=== PATIENT | male | born 2000 | race Caucasian/White ===

== ENCOUNTER 2022-12-26 16:28 | Emergency (ER) | payer OTHER, SELFPAY ==
[2022-12-26 16:39] VITALS: BP 130/83; PULSE 65; RESP 16; TEMP 36.5; O2SAT 99
--- NOTE | 2022-12-26 17:00 | ED.URI ---
HPI - URI/Sore Throat General Chief Complaint: Upper Respiratory Infection Stated Complaint: Congestion Time Seen by Provider: 12/26/22 16:50 Source: patient Mode of arrival: ambulatory Limitations: no limitations History of Present Illness HPI Narrative: Patient presents today complaining of a 5 day history of sinus pressure, cough, congestion, wheezing. States his sinus symptoms have improved, but his cough and wheezing have persisted. He denies shortness of breath, sore throat, fever. He has been taking Benadryl without relief. History of asthma. States he did have an albuterol rescue inhaler several years ago, but has lost it. Related Data Allergies Allergy/AdvReac Type Severity Reaction Status Date / Time Penicillins AdvReac Unknown Unknown Verified 12/26/22 16:45 Review of Systems Review of Systems: CONSTITUTIONAL: Denies body aches, fever, chills, or sweats. EYES: Denies visual changes, redness, or discharge. ENT: Denies rhinorrhea, sore throat, or otalgia.+ sinus pressure, congestion CARDIOVASCULAR: Denies chest pain, palpitations, or edema. RESPIRATORY: Denies dyspnea.+ cough, wheezing GASTROINTESTINAL: Denies abdominal pain, nausea, vomiting, or diarrhea. GENITOURINARY: Denies dysuria or hematuria. SKIN: Denies rash, itching, or wounds. MUSCULOSKELETAL: Denies back pain, joint pain, or myalgia. NEUROLOGIC: Denies headache, numbness, tingling, or weakness. PSYCH: Denies depression or anxiety. [facility] Past Medical History Medical History (Updated 12/26/22 @ 17:04 by Stefania Stern, [facility], ) Asthma Comments At time of signature, I have reviewed and agree with nursing past medical, surgical, social and family history unless otherwise noted. Please see nursing chart for further information. There is no relevant family history pertinent to the presenting complaint Exam Narrative: GENERAL: Well-appearing, well-nourished, and in no acute distress. HEAD: Normocephalic, atraumatic. EYES: EOMI. No redness or drainage. Conjunctivae normal. ENT: Mucous membranes pink and moist. Nares clear. No rhinorrhea. TMs normal bilaterally. Throat normal. Uvula midline. NECK: Normal AROM. Supple. No lymphadenopathy. CHEST: No respiratory distress. Clear to auscultation. HEART: Regular rate and rhythm. No murmur appreciated. EXTREMITIES: Normal range of motion. No edema. SKIN: Warm, dry, no rash. Capillary refill normal. Normal skin turgor. NEURO: No focal deficits. Alert and oriented x3. Gait steady. PSYCH: Normal affect. No signs of depression or anxiety. Course Course Level of Care: Express Care Visit Vital Signs Vital signs: Vital Signs Temperature 97.7 F 12/26/22 16:39 Pulse Rate 65 12/26/22 16:39 Respiratory Rate 16 12/26/22 16:39 Blood Pressure 130/83 12/26/22 16:39 Pulse Oximetry 99 12/26/22 16:39 Oxygen Delivery Room Air 12/26/22 16:39 Temperature 97.7 F 12/26/22 16:39 Pulse Rate 65 12/26/22 16:39 Respiratory Rate 16 12/26/22 16:39 Blood Pressure 130/83 12/26/22 16:39 Pulse Oximetry 99 12/26/22 16:39 Oxygen Delivery Room Air 12/26/22 16:39 Reviewed. Pt has been instructed to follow up with his PCP regarding his elevated blood pressure today. MDM - URI/Sore Throat MDM Narrative Medical decision making narrative: Symptoms consistent URI and bronchitis. Upper respiratory symptoms seem to be improving. Will send in prescriptions for prednisone and an albuterol rescue inhaler. Anticipatory guidance given. Differential Diagnosis Differential diagnosis: Likely upper respiratory infection, sinusitis, viral infection and bronchitis Critical Care Time Critical Care Time Critical Care Time: No Discharge Plan Discharge Clinical Impression: Bronchitis Upper respiratory infection Qualifiers: URI type: unspecified URI Qualified Code(s): J06.9 - Acute upper respiratory infection, unspecified Patient Disposition: Home, Self-Care Condition: Stab
== END 2022-12-26 17:05 | disposition home or self-care (01) ==
PROVIDERS: Emergency Provider Nurse Practitioner
DX: J40 Bronchitis, not specified as acute or chronic (principal); J06.9 Acute upper respiratory infection, unspecified
CPT/HCPCS: 99203; G0463

== ENCOUNTER 2023-06-17 15:28 | Emergency (ER) | payer OTHER, SELFPAY ==
[2023-06-17 15:34] VITALS: BP 136/71; PULSE 67; RESP 16; TEMP 36.4; O2SAT 99
--- NOTE | 2023-06-17 15:57 | ED.SKABFB ---
HPI - Skin/Abscess/Foreign Bdy General Chief complaint: Skin/Abscess/Foreign Body Stated complaint: Rash,Insect Bites Time Seen by Provider: 06/17/23 15:29 Source: patient Mode of arrival: ambulatory Limitations: no limitations History of Present Illness HPI narrative: 22-year-old male presents to [facility] with complaints of erythematous itchy rash to his chest, back, upper legs, left arm and genitals since yesterday. Patient reports that [place] yesterday [place] stands and then started with a rash yesterday evening. Patient reports he has a long history of poison jimmy and reports that oral steroids alone do not work for him. Patient denies shortness of breath, wheezing, trouble swallowing, difficulty breathing or sore throat. Patient has not tried applying any [id number]-[id number] medications for symptoms MD complaint: rash Onset (ago): day(s) (1) Location: chest, back and genitals Quality: pruritic Relieving factors: none Exacerbating factors: none Associated symptoms: denies other symptoms Treatments prior to arrival: none Related Data Allergies Allergy/AdvReac Type Severity Reaction Status Date / Time Penicillins AdvReac Unknown Unknown Verified 06/17/23 15:35 Review of Systems Constitutional: Constitutional: Denies chills, Denies fatigue, Denies fever(s) and Denies weakness ENT: Denies vertigo, Denies dizziness, Denies epistaxis and Denies nasal congestion Cardiovascular: Cardiovascular: Denies chest pain Respiratory: Respiratory: Denies cough, Denies dyspnea and Denies wheezing Gastrointestinal: Gastrointestinal: Denies diarrhea, Denies nausea and Denies vomiting Integumentary/Breasts: Skin/Breast: Reports pruritus, Reports erythema, Reports rash and Denies skin ulcer Neurologic: Denies vertigo, Denies dizziness, Denies syncope and Denies headache(s) [facility] Past Medical History Medical History Asthma Comments At time of signature, I agree with nursing past medical, surgical, social and family history. There is no relevant family history pertinent to the presenting complaint. Exam Const: General: healthy appearing Nutritional Appearance: well nourished Orientation/consciousness: patient oriented x3 Limitations: no limitations HENMT: Head: normal to inspection Neck: Neck: normal visual inspection Resp: Effort & Inspection: normal respiratory effort and not labored Auscultation: clear to auscultation bilaterally, no crackles, no rales, no rhonchi, no wheezes and breath sounds present Cardio: Rate: regular rate Rhythm: regular rhythm Heart sounds: no murmurs Skin: General skin exam: normal color Wounds: no wounds Other: Intermittent raised erythematous rash noted to torso and back representing insect bite type of rash, possibly chigger-type rash. There is an area of erythematous raised linear rash to left forearm representing poison jimmy. No purulent drainage, bleeding, bruising or streaking erythema noted Neuro: General: patient oriented x3 Speech: normal speech Gait exam (Neuro): Normal gait present Psych: Affect: normal affect Attitude: cooperative Course Course Level of Care: Express Care Visit Vital Signs Vital signs: Vital Signs Temperature 36.4 C L 06/17/23 15:34 Pulse Rate 67 06/17/23 15:34 Respiratory Rate 16 06/17/23 15:34 Blood Pressure 136/71 06/17/23 15:34 Pulse Oximetry 99 06/17/23 15:34 Oxygen Delivery Room Air 06/17/23 15:34 Temperature 36.4 C L 06/17/23 15:34 Pulse Rate 67 06/17/23 15:34 Respiratory Rate 16 06/17/23 15:34 Blood Pressure 136/71 06/17/23 15:34 Pulse Oximetry 99 06/17/23 15:34 Oxygen Delivery Room Air 06/17/23 15:34 MDM - Skin/Abscess/Foreign Bdy MDM Narrative Medical decision making narrative: Encouraged patient to start oral prednisone tomorrow; educated patient to use steroid cream as prescribed but
[2023-06-17] MEDS: methylPREDNISolone SOD SUCC 125 MG VIAL IM (16:06)
== END 2023-06-17 16:16 | disposition home or self-care (01) ==
PROVIDERS: Emergency Provider Nurse Practitioner Family
DX: L23.7 Allergic contact dermatitis due to plants, except food (principal); S30.861A Insect bite (nonvenomous) of abdominal wall, initial encounter; W57.XXXA Bitten or stung by nonvenomous insect and other nonvenomous arthropods, initial encounter; J45.909 Unspecified asthma, uncomplicated
CPT/HCPCS: 96372; 99213; G0463; J2930

== ENCOUNTER 2023-06-20 15:15 | Emergency (ER) | payer OTHER, SELFPAY ==
[2023-06-20 15:29] VITALS: BP 137/90; PULSE 64; RESP 18; TEMP 36.9; O2SAT 98
[2023-06-20 15:30] VITALS: BP 137/90; PULSE 64; RESP 18; TEMP 36.9; O2SAT 98
--- NOTE | 2023-06-20 15:42 | ED.SKABFB ---
HPI - Skin/Abscess/Foreign Bdy General Chief complaint: Skin/Abscess/Foreign Body Stated complaint: poss insect bite Time Seen by Provider: 06/20/23 15:34 Source: patient, RN notes reviewed and old records reviewed Mode of arrival: ambulatory History of Present Illness HPI narrative: Patient presents today complaining of a possible infection to his left wrist. He was seen 3 days ago at Urgent Care and diagnosed with insect bites and poison jimmy. He was started on some oral prednisone and triamcinolone cream which he has been applying. He has also been scratching profusely at the wrist as it itches. Reports that his poison jimmy rash to the left forearm has spread to the inner elbow and biceps. Also reports the groin rash has spread down his legs to the bilateral popliteal fossa. He has been taking Benadryl and Pepcid for itching. States he believes he may have a spider bite to the wrist as there is a scabbed area here. Denies pain. Related Data Allergies Allergy/AdvReac Type Severity Reaction Status Date / Time Penicillins AdvReac Unknown Unknown Verified 06/20/23 15:29 Review of Systems Review of Systems: CONSTITUTIONAL: Denies body aches, fever, chills, or sweats. EYES: Denies visual changes, redness, or discharge. ENT: Denies rhinorrhea, congestion, sore throat, or otalgia. CARDIOVASCULAR: Denies chest pain, palpitations, or edema. RESPIRATORY: Denies cough or dyspnea. GASTROINTESTINAL: Denies abdominal pain, nausea, vomiting, or diarrhea. GENITOURINARY: Denies dysuria or hematuria. SKIN: + rash, possible insect bite. MUSCULOSKELETAL: Denies back pain, joint pain, or myalgia. NEUROLOGIC: Denies headache, numbness, tingling, or weakness. PSYCH: Denies depression or anxiety. [facility] Past Medical History Medical History Asthma Comments At time of signature, I have reviewed and agree with nursing past medical, surgical, social and family history unless otherwise noted. Please see nursing chart for further information. There is no relevant family history pertinent to the presenting complaint Exam Narrative: GENERAL: Well-appearing, well-nourished, and in no acute distress. HEAD: Normocephalic, atraumatic. EYES: EOMI. No redness or drainage. Conjunctivae normal. ENT: Mucous membranes pink and moist. NECK: Normal AROM. CHEST: No respiratory distress. EXTREMITIES: Normal range of motion. No edema. SKIN: Warm, dry. Capillary refill normal. Normal skin turgor. Erythematous tiny maculopapular rash that has coalesced to a moderately sized area of erythema to the anterior left wrist with slight induration and approximately 0.5 cm superficial scabbed area to the distal ulna area. No tenderness. Patient also has approximately 2 cm superficial linear abrasion to the anterior forearm. No red streaking noted. Patches of tiny maculopapular rash to the bilateral popliteal fossa and bilateral antecubital fossa. NEURO: No focal deficits. Alert and oriented x3. Gait steady. PSYCH: Normal affect. No signs of depression or anxiety. Course Course Level of Care: Express Care Visit Vital Signs Vital signs: Vital Signs Temperature 98.4 F 06/20/23 15:29 Pulse Rate 64 06/20/23 15:29 Respiratory Rate 18 06/20/23 15:29 Blood Pressure 137/90 06/20/23 15:29 Pulse Oximetry 98 06/20/23 15:29 Oxygen Delivery Room Air 06/20/23 15:29 Temperature 98.4 F 06/20/23 15:30 Pulse Rate 64 06/20/23 15:30 Respiratory Rate 18 06/20/23 15:30 Blood Pressure 137/90 06/20/23 15:30 Pulse Oximetry 98 06/20/23 15:30 Oxygen Delivery Room Air 06/20/23 15:30 Reviewed. Pt has been instructed to follow up with his PCP regarding his elevated blood pressure today. MDM - Skin/Abscess/Foreign Bdy MDM Narrative Medical decision making narrative: Patient has obvious contact dermatitis with possible small area of cellulitis of the distal wrist. W
== END 2023-06-20 15:48 | disposition home or self-care (01) ==
PROVIDERS: Emergency Provider Nurse Practitioner
DX: L03.114 Cellulitis of left upper limb (principal); L25.9 Unspecified contact dermatitis, unspecified cause; J45.909 Unspecified asthma, uncomplicated
CPT/HCPCS: 99213; G0463

== ENCOUNTER 2023-09-04 00:06 | Emergency (ER) | payer OTHER, SELFPAY ==
[2023-09-04 00:10] VITALS: BP 146/78; PULSE 107; RESP 18; TEMP 36.8; O2SAT 98
--- NOTE | 2023-09-04 01:10 | PC.NURSE ---
pt. to motel front desk attendant stating I am going home. PT. advised to return to facility for worsening conditions, Pt. NAD upon departure.
== END 2023-09-04 02:45 | disposition left against medical advice (07) ==
DX: L50.9 Urticaria, unspecified (principal)
CPT/HCPCS: 99199

== ENCOUNTER 2024-02-10 10:22 | Emergency (ER) | payer OTHER, SELFPAY ==
[2024-02-10 10:26] VITALS: BP 152/82; PULSE 71; RESP 16; TEMP 36.8; O2SAT 100
--- NOTE | 2024-02-10 10:30 | ED.GENADULT ---
HPI - General Adult General Chief complaint: Skin/Abscess/Foreign Body Stated complaint: Poison Rowena Source: patient, RN notes reviewed and old records reviewed Mode of arrival: ambulatory Limitations: no limitations History of Present Illness HPI narrative: 23-year-old patient presents to Express Care with complaint of rash to both arms and itching on phase. Patient states started after being in the [place] over the weekend. Patient states has history of poison rowena and believes this is it. Patient has not taken anything for symptoms. Patient did you wash with poison rowena soap. Related Data Allergies Allergy/AdvReac Type Severity Reaction Status Date / Time Penicillins AdvReac Unknown Unknown Verified 06/20/23 15:29 Review of Systems Constitutional: Constitutional: Reports no additional constitutional complaints, Denies body ache(s), Denies chills, Denies fatigue, Denies fever(s) and Denies headache(s) Eyes: Eyes: Reports no additional eye complaints and Denies blurry vision ENT: Reports system reviewed and no additional complaints, except as documented, Denies vertigo, Denies dizziness, Denies ear discharge, Denies otalgia, Denies facial pain, Denies headache(s), Denies nasal congestion, Denies nasal discharge, Denies sinus pain, Denies sinus pressure and Denies sore throat Cardiovascular: Cardiovascular: Reports no additional cardiovascular complaints, Denies chest pain, Denies chest pain at rest, Denies rapid heart rate and Denies dyspnea Respiratory: Respiratory: Reports no additional respiratory complaints, Denies chest congestion, Denies cough, Denies pain on inspiration, Denies pain with cough and Denies dyspnea Gastrointestinal: Gastrointestinal: Denies abdominal pain, Denies diarrhea, Denies nausea and Denies vomiting Integumentary/Breasts: Skin/Breast: Reports rash Neurologic: Reports system reviewed and no additional complaints, except as documented, Denies vertigo, Denies dizziness and Denies headache(s) Endocrine: Endocrine: Denies fatigue [facility] Past Medical History Medical History Asthma Comments At the time of my signature, I reviewed and agree with the nursing past medical, surgical, social, and family history. There is no relevant family history pertinent to the patient complaint. Exam Const: General: cooperative, healthy appearing, no acute distress and well nourished Nutritional Appearance: well nourished Orientation/consciousness: patient oriented x3 Limitations: no limitations HENMT: Head: normal to inspection and normocephalic Ears: external ears normal Face/Nose/Sinus: normal facial exam Face and sinus: normal facial exam Mouth: Yes Normal oral and palatal mucosa present, Yes oropharynx normal and Yes moist mucous membranes Eyes: General: appearance normal, both eyes and all related structures Sclera: sclerae normal Pupils: Equal, round and reactive pupils present Resp: Effort & Inspection: normal respiratory effort, able to speak in complete sentences, no audible wheezes, no cough, no respiratory distress and no retractions Auscultation: clear to auscultation bilaterally, no crackles, no rales, no rhonchi and no wheezes Cardio: Rate: regular rate Rhythm: regular rhythm Skin: General skin exam: normal color, no rashes or lesions noted and rashes Rashes: rashes noted ( Macular rash to bilateral arms) Neuro: General: patient oriented x3 Cranial nerves: Yes Equal, round and reactive pupils present Psych: Appearance: grossly normal Mental Status: mental status grossly normal Speech and movement: Normal speech and movement present Affect: normal affect Course Course Emergency Course: Patient is aware of diagnosis, understands and agrees to treatment plan.? Anticipatory guidance given.? Patient agrees to follow-up as directed and is aware of reasons to seek care at the emergency department. Some parts of this d
== END 2024-02-10 10:43 | disposition home or self-care (01) ==
PROVIDERS: Emergency Provider Registered Nurse
DX: L23.7 Allergic contact dermatitis due to plants, except food (principal); J45.909 Unspecified asthma, uncomplicated
CPT/HCPCS: 99213; G0463

== ENCOUNTER 2025-05-18 09:55 | Emergency (ER) | payer OTHER, SELFPAY ==
--- NOTE | ~2025-05-18 | XR_ITS ---
XR tibia fibula LT 2V 05/18/2025 10:17 Indication: Left anterior alexis pain and redness Procedure: 2 views left tibia/fibula Comparison: No prior studies for comparison. Findings: There is moderate soft tissue swelling anterior to the tibia midshaft, best seen on lateral view. No fracture, subluxation or dislocation. Benign calcification present within the overlying sof t tissues. Impression: 1: Moderate soft tissue swelling overlying the mid shaft of the tibia anteriorly. Reviewed, dictated and finalized at location A. Impression: 1: Moderate soft tissue swelling overlying the mid shaft of the tibia anteriorl y.
--- NOTE | 2025-05-18 09:57 | ED_ITS ---
HPI - Skin/Abscess/Foreign Bdy General Chief complaint: Skin/Abscess/Foreign Body Stated complaint: LT Leg Problem Time Seen by Provider: 05/18/25 09:57 Source: patient Mode of arrival: ambulatory Limitations: no limitations History of Present Illness HPI narrative: Gerardo is a 24-year-old male patient presenting to the clinic today with complaints of left alexis pain. He reports he is injured his alexis a couple times over the past week. He hit it off a trailer hitch, attempted to do a back flip and hit his alexis on the concrete of a pool, and injured it 1 other time-he cannot remember what he did. Has pain, localized swelling, and mild redness to the mid anterior alexis. No obvious open wound. No discharge coming from the area. No pedal edema. Pain is worse with walking. Rates his pain currently 3/10. Has been taking ibuprofen and applying ice. No fevers, chills, body aches. Related Data Home Medications ?Medication ?Instructions ?Recorded ?Confirmed ?Last Taken ?Type No Home Medications 05/18/25 05/18/25 Unknown History Allergies Allergy/AdvReac Type Severity Reaction Status Date / Time Penicillins AdvReac Unknown Unknown Verified 05/18/25 09:57 Review of Systems Review of Systems: Pertinent positives per HPI. Patient denies any fever, chills, rash, headache, visual changes, dizziness, cough, shortness of breath, chest pain, palpitations, nausea, vomiting, diarrhea, constipation, abdominal pain, or any urinary issues. [facility] Past Medical History Medical History Asthma Comments At the time of my signature, I reviewed and agree with the nursing past medical, surgical, social, and family history. There is no relevant family history pertinent to the patient complaint. Exam Narrative: General: Well-developed, well nourished, in no apparent distress Head: Normocephalic, atraumatic. Cardio: Regular rate and rhythm, s1 and s2 normal, no murmur appreciated. Resp: Clear to auscultation bilaterally, no rhonchi, rales, wheezing or rubs. Musculoskeletal: No deformity, redness, mild swelling, tenderness, and mild erythema to the left anterior mid tib-fib, pain worse with ambulation, no drainage, no wounds, grossly normal range of motion, muscle strength strong and equal, peripheral pulse strong, no edema, no cyanosis, normal gait and station Course Course Emergency Course: Portions of this record may have been created with voice recognition software. Level of Care: Express Care Visit Vital Signs Vital signs: Vital Signs Temperature 36.4 C 05/18/25 10:00 Pulse Rate 71 05/18/25 10:00 Respiratory Rate 16 05/18/25 10:00 Blood Pressure 148/76 H 05/18/25 10:00 Pulse Oximetry 99 05/18/25 10:00 Oxygen Delivery Room Air 05/18/25 10:00 Temperature 36.4 C 05/18/25 10:00 Pulse Rate 71 05/18/25 10:00 Respiratory Rate 16 05/18/25 10:00 Blood Pressure 148/76 H 05/18/25 10:00 Pulse Oximetry 99 05/18/25 10:00 Oxygen Delivery Room Air 05/18/25 10:00 Vital signs reviewed MDM - Skin/Abscess/Foreign Bdy MDM Narrative Medical decision making narrative: At the time of visit patient is resting comfortably on the exam table. Patient appears to be nontoxic. Patient reports hitting his left alexis 3 times over the last week. Has some swelling, mild redness, mild erythema, and tenderness to palpation over the mid lower tib-fib. No fevers, chills, body aches. No circumferential redness or edema. Pedal pulse strong. Sensation circulation of motion within normal limits. X-ray ordered of the left tib-fib. Diagnostics: X-ray of the left hip for this negative for any sign of fracture or malalignment. Does show some soft tissue swelling over the anterior tib fib soft tissue Plan: I suspect patient has a contusion to the left tib-fib. Recommend ice, Brent, Tylenol, and Motrin. Watch for signs and symptoms of infection and will need to be re-evaluated if his symptoms worsen. Supportive measures were discussed with the patient and they voiced understanding discharge instructions and agrees to treatment plan. Return precautions reviewed Differential Diagnosis Differential diagnosis: Likely abscess of skin or subcutaneous tissue, viral exanthem, dermatophytosis, urticaria, herpes zoster, allergic reaction to drug, cellulitis, eczema, insect bites, impetigo and contact dermatitis Discharge Plan Discharge Clinical Impression: Contusion Qualifiers: Encounter type: initial encounter Contusion area: lower leg Laterality: left Qualified Code(s): S80.12XA - Contusion of left lower leg, initial encounter Patient Disposition: Home Condition: Stable Instructions: Antibiotic Form, Contusion in Adults (ED) Additional Instructions: X-rays negative for any sign of fracture or malalignment. Does show soft tissue swelling over the anterior tib-fib Rest, ice, elevate, and wear brent wrap as directed Tylenol/motrin for pain as discussed. Gradually bear weight No running or sports until healed. Watch for signs and symptoms affection-fever, increase in redness, increase in swelling, increase in pain, streaking, or purulent discharge Follow up with your PCP if symptoms persist more than 1 week. Patient Language: Albanian Prescriptions: No Action No Home Medications Follow-up/Referrals: UNKNOWN,DOCTOR [Non-Staff] - Time of Disposition: 10:27 Quality NIHSS Nursing Documentation ED NIHSS nursing documentation: reviewed/agree
[2025-05-18 10:00] VITALS: BP 148/76; PULSE 71; RESP 16; TEMP 36.4; O2SAT 99
== END 2025-05-18 10:33 | disposition home or self-care (01) ==
PROVIDERS: Emergency Provider Nurse Practitioner Family
DX: S80.12XA Contusion of left lower leg, initial encounter (principal); W22.8XXA Striking against or struck by other objects, initial encounter; J45.909 Unspecified asthma, uncomplicated
CPT/HCPCS: 73590; 99213; G0463

== ENCOUNTER 2025-09-18 15:00 | Emergency (ER) | payer OTHER, SELFPAY ==
--- NOTE | 2025-09-18 15:12 | ED.SKABFB ---
HPI - Skin/Abscess/Foreign Bdy General Chief complaint: Skin/Abscess/Foreign Body Stated complaint: poison Rowena patient presents to the [facility] with complaints of duck hunting yesterday and potentially was exposed to poison rowena noted he woke up today and felt significant itching to his groin area as well as right side of his neck and around the right eye. Patient also noted over the last few hours has noted a rash to the left arm. No medication or remedies attempted for symptoms. Denies tongue swelling, lip swelling, difficulty breathing, wheezing, or drainage from the areas. Related Data Allergies Allergy/AdvReac Type Severity Reaction Status Date / Time Penicillins AdvReac Unknown Unknown Verified 09/18/25 15:13 Review of Systems Constitutional: Constitutional: Reports as per HPI, Denies chills, Denies fatigue, Denies fever(s) and Denies weakness Eyes: Eyes: Reports no additional eye complaints ENT: Reports system reviewed and no additional complaints, except as documented Cardiovascular: Cardiovascular: Reports no additional cardiovascular complaints Respiratory: Respiratory: Reports no additional respiratory complaints Gastrointestinal: Gastrointestinal: Reports no additional gastrointestinal complaints Genitourinary: Genitourinary: Reports no additional male genitourinary complaints Musculoskeletal: Musculoskeletal: Reports as per HPI, Denies back pain, Denies myalgias, Denies arthralgias and Denies joint swelling Integumentary/Breasts: Skin/Breast: Reports as per HPI, Reports pruritus, Reports rash and Denies skin ulcer Neurologic: Reports as per HPI, Denies numbness and Denies weakness Psychiatric: Psychiatric: Reports no additional psychiatric complaints Endocrine: Endocrine: Reports no additional endocrine complaints Hematologic/Lymphatic: Hematologic/Lymphatic: Reports no additional hematologic/lymphatic complaints Allergic/Immunologic: Allergic/Immunologic: Reports as per HPI, Denies lip swelling, Denies throat swelling, Denies tongue swelling and Denies wheezing PMFSH Past Medical History Medical History Asthma Exam Const: General: healthy appearing and no acute distress Nutritional Appearance: well nourished Orientation/consciousness: patient oriented x3 Limitations: no limitations HENMT: Head: normal to inspection ( obvious rash to right eye and right cheek) Mouth: Yes Normal oral and palatal mucosa present, Yes lip normal and Yes moist mucous membranes Neck: Neck: no lymphadenopathy Other: moderate rash and swelling noted to right-sided neck Resp: Effort & Inspection: normal respiratory effort Auscultation: clear to auscultation bilaterally Cardio: Rate: regular rate Rhythm: regular rhythm Skin: General skin exam: normal color Rashes: rash noted Wounds: no wounds Other: diffuse papular in vesicular rash noted to right side of right cheek, around right eye, left arm, and groin area. No active drainage or crusting noted Neuro: General: patient oriented x3 and moves all extremities Speech: normal speech Gait exam (Neuro): Normal gait present Extrem: General: normal to inspection, no clubbing, cyanosis or edema and no pedal edema Psych: Mental Status: mental status grossly normal Affect: normal affect Attitude: cooperative Course Course Level of Care: Express Care Visit MDM - Skin/Abscess/Foreign Bdy MDM Narrative Medical decision making narrative: given sudden onset of rash with facial and groin involvement will give patient steroid injection while here at the [facility] then start oral steroids tomorrow The patient was evaluated by myself in the [facility] care. History is obtained from patient who is an independent historian and physical exam was performed. Available medical records were reviewed at this time. Exam findings show no acute concerns or changes; patient is non-toxic appearing and is in no distress. Patient is appropriate for outpatient treatment and follow-up. I have evaluated and discussed social determinants of health with the patient that could potentially impact subsequent diagnosis and treatment plans. Differential diagnosis and treatment plan were discussed with the patient. Patient agrees with discussion and after shared medical decision making agrees with plan of care. All questions were answered to the patient's satisfaction. Differential Diagnosis Differential diagnosis: Likely abscess of skin or subcutaneous tissue, viral exanthem, urticaria, cellulitis, eczema, impetigo and contact dermatitis Medical Records Attestation: I reviewed the patient's medical records. Discharge Plan Discharge Clinical Impression: Allergic dermatitis due to poison rowena Patient Disposition: Home Condition: Stable Instructions: Antibiotic Form, Poison Rowena (ED), Cold Compress or Soak (ED) Additional Instructions: start the oral steroids tomorrow since your given an injection of steroids here at the urgent care Prevention is always better than treatment. Learn to identify poison rowena, oak, and sumac and avoid it. Wear long sleeves, long pants, shoes, and socks. If you touched the plant, try to keep your hands away from your eyes, mouth, and face. Wash the skin thoroughly with soap and cool water as soon as possible. Scrub under the fingernails with a brush to prevent spreading of the resin to other parts of the body by touching or scratching. Remember to wash any clothing with soap and hot water as the resin can persist for many months and cause further dermatitis. Use calamine lotion on the affect area. IF symptoms get worse to follow up with your primary care provider or seek ER visit if you developing difficulty breathing, weakness, dizziness. Patient Language: Welsh Prescriptions: New prednisone 10 mg tablet 10 mg PO DIRECTED Qty: 18 0RF Rx Instructions: take 3 tablets for 3 days, 2 tablets for 3 days, 1 tablet for 3 days triamcinolone acetonide 0.1 % cream 1 applic topical TID Qty: 80 0RF Rx Instructions: use sparingly on face and genitals Follow-up/Referrals: Champ Hicks MD [Primary Care Provider, [facility]] Time of Disposition: 15:24
[2025-09-18 15:13] VITALS: BP 127/82; PULSE 75; RESP 18; TEMP 36.8; O2SAT 99
== END 2025-09-18 15:27 | disposition home or self-care (01) ==
PROVIDERS: Emergency Provider Nurse Practitioner Family; PCP Family Medicine
DX: L23.7 Allergic contact dermatitis due to plants, except food (principal); J45.909 Unspecified asthma, uncomplicated
CPT/HCPCS: 96372; 99213; G0463; J2919